=== PATIENT | female | born 1930 | race Asian ===

== ENCOUNTER 2019-09-22 19:38 | Inpatient (IN) | payer MEDICARE, MEDICAID ==
[~2019-09-22] VITALS: Ht 162.6 cm; Wt 48.5 kg
[2019-09-22 19:40] VITALS: BP 90/58
--- NOTE | 2019-09-22 19:42 | NUR ---
ED Nurse Note: pt brought in by ambulance from [facility] for decreased BP and increased in lethargy. currently pt bp is 90/56 via monitor. daughter is by bedside.
--- NOTE | 2019-09-22 20:03 | NUR ---
ED Nurse Note: blood and urine sample sent down to lab
[2019-09-22] MEDS ORDERED: BISACODYL5 MG ORAL (20:08)
[2019-09-22] MEDS ORDERED: ASPIRIN EC500 M1 ORAL (20:08)
[2019-09-22] MEDS ORDERED: NAMENDA10 MG ORAL (20:08)
[2019-09-22] MEDS ORDERED: PROSTATE 2.4 C1 EAC1 PO (20:08)
[2019-09-22] MEDS ORDERED: ALBUTEROL2.5 MG/0.1 IH (20:08)
[2019-09-22] MEDS ORDERED: MILK OF MA400 MG/51 ORAL (20:08)
[2019-09-22] MEDS ORDERED: FAMOTIDINE20 MG ORAL (20:08)
[2019-09-22] MEDS ORDERED: COLACE100 MG ORAL (20:08)
[2019-09-22] MEDS ORDERED: ARICEPT5 MG ORAL (20:08)
--- NOTE | 2019-09-22 20:08 | NUR ---
ED Nurse Note: X ray at bedside
[2019-09-22 20:10] VITALS: BP 98/51
[2019-09-22 20:17] LABS: ANION GAP 10 mmol/L (5-15); BLOOD UREA NITROGEN 30 mg/dL (7-18); CALCIUM 9.2 MG/DL (8.5-10.1); CARBON DIOXIDE 25 MMOL/L (21-32); CHLORIDE 107 MMOL/L (98-107); CREATININE 1.2 MG/DL (0.55-1.30); POTASSIUM 3.5 MMOL/L (3.5-5.1); SODIUM 142 MMOL/L (136-145)
[2019-09-22 20:19] LABS: BASOPHILS % (AUTO) 0.3 % (0.0-2.0); EOSINOPHILS % (AUTO) 0.8 % (0.0-3.0); HEMATOCRIT 35.9 % (37.0-47.0); HEMOGLOBIN 12.3 G/DL (12.0-16.0); LYMPHOCYTES % (AUTO) 15.2 % (20.0-45.0); MEAN CORPUSCULAR VOLUME 94 FL (80-99); MONOCYTES % (AUTO) 8.4 % (1.0-10.0); NEUTROPHILS % (AUTO) 75.3 % (45.0-75.0); PLATELET COUNT 230 K/UL (150-450); RED BLOOD COUNT 3.82 M/UL (4.20-5.40); RED CELL DISTRIBUTION WIDTH 11.3 % (11.6-14.8); WHITE BLOOD COUNT 9.9 K/UL (4.8-10.8)
[2019-09-22 20:20] LABS: APPEARANCE,URINE CLEAR; BILIRUBIN, URINE NEGATIVE (NEGATIVE); COLOR,URINE PALE YELLOW; GLUCOSE, URINE (UA) NEGATIVE (NEGATIVE); KETONES,URINE NEGATIVE (NEGATIVE); LEUKOCYTE ESTERASE ,URINE 1+ (NEGATIVE); NITRITE,URINE NEGATIVE (NEGATIVE); PH,URINE 7 (4.5-8.0); PROTEIN,URINE 2+ (NEGATIVE); UROBILINOGEN,URINE NORMAL MG/DL (0.0-1.0)
[2019-09-22 20:30] LABS: ALANINE AMINOTRANSFERASE 18 U/L (12-78); ALBUMIN 3.4 G/DL (3.4-5.0); ALBUMIN/GLOBULIN RATIO 0.9 (1.0-2.7); ALKALINE PHOSPHATASE 56 U/L (46-116); ASPARTATE AMINO TRANSFERASE 14 U/L (15-37); BILIRUBIN,TOTAL 0.3 MG/DL (0.2-1.0); CKMB < 0.5 NG/ML (0.0-3.6); CREATINE KINASE 18 U/L (26-308)
--- NOTE | 2019-09-22 21:27 | NUR ---
ED Nurse Note: Repeat lactic sent to lab
--- NOTE | 2019-09-22 21:28 | Emergency Room Report ---
History of Present Illness General Chief Complaint: Generalized Weakness Source: Family Member Present Illness HPI 89-year-old female presents ED for evaluation. [facility]. Reported altered level of consciousness witnessed by daughter. Lasted for several minutes. Also hypotensive in the field. Daughter states that patient was admitted to [facility] last week for similar presentation and subsequently transferred to [facility] rehab facility. Has signs of distress upon arrival. No other aggravating relieving factors. No other associated symptoms Allergies: Coded Allergies: No Known Allergies (Unverified , 09/22/19) Patient History Past Medical History: none Past Surgical History: none Pertinent Family History: none Social History: Denies: smoking, alcohol use, drug use Last Menstrual Period: na Now: No Immunizations: UTD Reviewed Nursing Documentation: PMH: Agreed; PSxH: Agreed Review of Systems All Other Systems: limited Physical Exam Vital Signs Date Time Temp Pulse Resp B/P (MAP) Pulse Ox O2 Delivery O2 Flow Rate FiO2 09/22/19 19:34 98.4 84 18 96/70 (79) 96 Room Air 09/22/19 19:40 97 Sp02 EP Interpretation: reviewed, normal General Appearance: no apparent distress, lethargic, thin Head: normocephalic, atraumatic Eyes: bilateral eye normal inspection, bilateral eye PERRL ENT: hearing grossly normal, normal pharynx, no angioedema, normal voice Neck: full range of motion, supple/symm/no masses Respiratory: chest non-tender, lungs clear, normal breath sounds, speaking full sentences Cardiovascular #1: regular rate, rhythm, no edema Cardiovascular #2: 2+ carotid (R), 2+ carotid (L), 2+ radial (R), 2+ radial (L) , 2+ dorsalis pedis (R), 2+ dorsalis pedis (L) Gastrointestinal: normal bowel sounds, non tender, soft, non-distended, no guarding, no rebound Rectal: deferred Genitourinary: normal inspection, no CVA tenderness Musculoskeletal: back normal, non-tender Neurologic: other - lethargic Psychiatric: other - lethargic Reflexes: 3+ bicep (R), 3+ bicep (L), 3+ tricep (R), 3+ tricep (L), 3+ knee (R) , 3+ knee (L) Skin: other - see nursing skin notes Lymphatic: no adenopathy Procedures Critical Care Time Critical Care Time i. I feel this is a highly complex case requiring extensive working including EKG/Rhythm strip, Xray/CT/US, Blood/urine lab work, repeat exams while in ED, and administration of strong opiates/narcotics for pain control, admission to hospital or close patient follow up. Total time: 45 min bedside evaluation and treatment excludes procedures (EKG). Reason for critical care: hypotension, AMS Possible complications: hypotension, hypertension, AL, shock, arrhythmias, metabolic acidosis, end organ damage, respiratory failure. Interventions: labs, IVFS, EKG, CXR, cardiac monitoring Course: Patient presenting with altered mental status. Hypotension. Labs IV fluids EKG and chest x-ray. No leukocytosis. Hemoglobin/hematocrit stable, electro lites okay, lactic millimeter be elevated, UA negative. Chest x-ray shows no focal consolidation. BP slowly improving with IV fluids. Consultations: nursing staff, EMS, family Performed by: Dr Vital Tolerated well condition = serious j. because of unstable vital signs this patient had a condition that could potentially threaten life or limb. I feel this is a critical patient who required my full attention while patient was considered critical. Total Critical Care Time excluding procedures was greater than 45 minutes Medical Decision Making Diagnostic Impression: Primary Impression: Episode of generalized weakness Additional Impression: Acute encephalopathy ER Course Hospital Course 89-year-old female presenting to ED with generalized weakness, hypotension Differential diagnoses include: Pneumonia, UTI, sepsis, dehydration, AL/ unstable angina Clinical course Patient placed on stretcher. On neurourologist with hypotension. After initial history and physical, I ordered labs, IV fluids, EKG, chest x-ray, blood cultures, UA. Labs - electrolytes ok, UA negative, no leukocytosis, hb/hct stable, lactic 2.3 EKG - NSR no acute ischemic chagnes interpreted by me CXR - no acute process Afebrile. No source of infection. BP slowly improving with IV fluids. Case discussed with Dr Moreno and they agreed to admit patient to their service for further care and support I feel this is a highly complex case requiring extensive working including EKG/ Rhythm strip, Xray/CT/US, Blood/urine lab work, repeat exams while in ED, and administration of strong opiates/narcotics for pain control, admission to hospital or close patient follow up. Diagnosis - episode of generalized weakness, acute encephalopathy Patient admitted to telemetry in serious condition Labs Test 09/22/19 19:50 09/22/19 20:00 09/22/19 21:17 White Blood Count 9.9 K/UL (4.8-10.8) Red Blood Count 3.82 M/UL (4.20-5.40) Hemoglobin 12.3 G/DL (12.0-16.0) Hematocrit 35.9 % (37.0-47.0) Mean Corpuscular Volume 94 FL (80-99) Mean Corpuscular Hemoglobin 32.2 PG (27.0-31.0) Mean Corpuscular Hemoglobin Concent 34.3 G/DL (32.0-36.0) Red Cell Distribution Width 11.3 % (11.6-14.8) Platelet Count 230 K/UL (150-450) Mean Platelet Volume 5.2 FL (6.5-10.1) Neutrophils (%) (Auto) 75.3 % (45.0-75.0) Lymphocytes (%) (Auto) 15.2 % (20.0-45.0) Monocytes (%) (Auto) 8.4 % (1.0-10.0) Eosinophils (%) (Auto) 0.8 % (0.0-3.0) Basophils (%) (Auto) 0.3 % (0.0-2.0) Sodium Level 142 MMOL/L (136-145) Potassium Level 3.5 MMOL/L (3.5-5.1) Chloride Level 107 MMOL/L (98-107) Carbon Dioxide Level 25 MMOL/L (21-32) Anion Gap 10 mmol/L (5-15) Blood Urea Nitrogen 30 mg/dL (7-18) Creatinine 1.2 MG/DL (0.55-1.30) Estimat Glomerular Filtration Rate mL/min (>60) Glucose Level 142 MG/DL (74-106) Lactic Acid Level 2.30 mmol/L (0.4-2.0) Calcium Level 9.2 MG/DL (8.5-10.1) Total Bilirubin 0.3 MG/DL (0.2-1.0) Aspartate Amino Transf (AST/SGOT) 14 U/L (15-37) Alanine Aminotransferase (ALT/SGPT) 18 U/L (12-78) Alkaline Phosphatase 56 U/L (46-116) Total Creatine Kinase 18 U/L (26-308) Creatine Kinase MB < 0.5 NG/ML (0.0-3.6) Creatine Kinase MB Relative Index 2.7 Troponin I 0.000 ng/mL (0.000-0.056) Pro-B-Type Natriuretic Peptide 476 pg/mL (0-125) Total Protein 7.1 G/DL (6.4-8.2) Albumin 3.4 G/DL (3.4-5.0) Globulin 3.7 g/dL Albumin/Globulin Ratio 0.9 (1.0-2.7) Urine Color Pale yellow Urine Appearance Clear Urine pH 7 (4.5-8.0) Urine Specific Pinon 1.010 (1.005-1.035) Urine Protein 2+ (NEGATIVE) Urine Glucose (UA) Negative (NEGATIVE) Urine Ketones Negative (NEGATIVE) Urine Blood 1+ (NEGATIVE) Urine Nitrite Negative (NEGATIVE) Urine Bilirubin Negative (NEGATIVE) Urine Urobilinogen Normal MG/DL (0.0-1.0) Urine Leukocyte Esterase 1+ (NEGATIVE) Urine RBC 0-2 /HPF (0 - 2) Urine WBC 0-2 /HPF (0 - 2) Urine Squamous Epithelial Cells Occasional /LPF Urine Bacteria Few /HPF (NONE) EKG Diagnostic Results Rate: normal Rhythm: NSR ST Segments: no acute changes ASA given to the pt in ED: No Rhythm Strip Diag. Results EP Interpretation: yes Rhythm: NSR, no PVC's, no ectopy Chest X-Ray Diagnostic Results Chest X-Ray Diagnostic Results : Chest X-Ray Ordered: Yes # of Views/Limited/Complete: 1 View Indication: Other - AMS EP Interpretation: Yes Interpretation: no consolidation, no effusion, no pneumothorax, no acute cardiopulmonary disease Impression: No acute disease Electronically Signed by: Electronically signed by Cedric Vital MD Last Vital Signs Date Time Temp Pulse Resp B/P (MAP) Pulse Ox O2 Delivery O2 Flow Rate FiO2 09/22/19 20:10 98/51 09/22/19 19:40 98.4 80 18 97 Room Air 09/22/19 19:40 97 Status: improved Disposition: ADMITTED INPATIENT Condition: Serious Referrals: NON PHYSICIAN (PCP) Cedric Vital MD Sep 22, 2019 21:28
[2019-09-22 22:10] VITALS: BP 107/54
--- NOTE | 2019-09-22 22:10 | NUR ---
ED Nurse Note: pt in bed resting, daughter by bedside. VSS
[2019-09-22] MEDS ORDERED: Piperacillin/Tazobactam 3.375 GM in NS 110 ML IVPB SCH (23:00)
--- NOTE | 2019-09-22 23:45 | NUR ---
ED Nurse Note: PT taken to telemetry floor room 202 accompanied by RN and electronic prepress technician via gurjhony with monitor box in stable condition. IV site to right hand 22g is intact. Report given to RIVERA Blunt. Belonging list signed off.
--- NOTE | 2019-09-22 23:50 | NUR ---
NURSE NOTES: Received report from RIVERA Willingham. Patient arrived via gurney accompanied by the RN and property maintenance technician. Patient is awake and responsive to verbal and tactile stimuli. Patient is mainly Syriac speaking, understands very minimal Divehi. Patient is breathing regularly and unlabored with no s/s of SOB noted. Placed patient on monitoring manager, patient is running sinus rhythm. Patient's skin is intact, noted patient to have bilateral old scarring on the hip area, possible from a previous surgery, but no listed history exists. Patient also has a old healed sacral wound with no openings noted. Patient's IV is intact, patent and asymptomatic, running fluids at prescribed rate. Patient's family was at bedside, daughter said she will return possibly tomorrow. Bed is in lowest position, breaks engaged, call light within reach, bed-alarm on, and side-rails up x3. Patient is oriented to the room to her own ability, patient is able to call with the call light in case of assistance. All needs taken care of, will continue to monitor.
[2019-09-23] VITALS: BP 113/68
--- NOTE | 2019-09-23 00:30 | NUR ---
Informed [facility] in regards to the 2 IV antibiotics that the patient needed to get (Vanco/Zosyn) and [facility] pharmacist said it was okay to Y-site the current IV fluid with the antibiotics.
[2019-09-23] MEDS: NS w/KCl 20mEq 1000ml 1,000 ML IV SCH ×4 (01:05→19:38)
[2019-09-23] MEDS ORDERED: Bisacodyl EC 5mg tab ORAL PRN (01:30)
[2019-09-23] MEDS ORDERED: Docusate 100mg cap ORAL PRN (01:30)
[2019-09-23 04:00] VITALS: BP 110/69
[2019-09-23 05:20] LABS: BASOPHILS % (AUTO) 0.2 % (0.0-2.0); EOSINOPHILS % (AUTO) 0.4 % (0.0-3.0); HEMATOCRIT 31.4 % (37.0-47.0); HEMOGLOBIN 10.8 G/DL (12.0-16.0); LYMPHOCYTES % (AUTO) 17.4 % (20.0-45.0); MEAN CORPUSCULAR VOLUME 93 FL (80-99); MONOCYTES % (AUTO) 6.5 % (1.0-10.0); NEUTROPHILS % (AUTO) 75.5 % (45.0-75.0); PLATELET COUNT 197 K/UL (150-450); RED BLOOD COUNT 3.36 M/UL (4.20-5.40); RED CELL DISTRIBUTION WIDTH 11.2 % (11.6-14.8); WHITE BLOOD COUNT 8.4 K/UL (4.8-10.8)
[2019-09-23] MEDS: Vancomycin 1 GM in NS 275 ML IVPB SCH (05:44)
[2019-09-23 05:45] LABS: ANION GAP 8 mmol/L (5-15); BLOOD UREA NITROGEN 18 mg/dL (7-18); CARBON DIOXIDE 23 MMOL/L (21-32); CHLORIDE 113 MMOL/L (98-107); CREATININE 0.8 MG/DL (0.55-1.30); POTASSIUM 3.8 MMOL/L (3.5-5.1); SODIUM 144 MMOL/L (136-145)
[2019-09-23 05:58] LABS: ALANINE AMINOTRANSFERASE 15 U/L (12-78); ALBUMIN 2.8 G/DL (3.4-5.0); ALBUMIN/GLOBULIN RATIO 0.9 (1.0-2.7); ALKALINE PHOSPHATASE 42 U/L (46-116); ASPARTATE AMINO TRANSFERASE 16 U/L (15-37); BILIRUBIN,TOTAL 0.3 MG/DL (0.2-1.0)
--- NOTE | 2019-09-23 07:00 | History and Physical Report ---
DATE OF ADMISSION: 09/22/2019 CHIEF COMPLAINT: Altered mental status, hypotension. HISTORY OF PRESENT ILLNESS: The patient is an elderly female. She has a history of dementia, encephalopathy. She was transferred from a halfway facility with an episode of altered mentation and hypotension. There are no reports of any fevers or chills. No cough. No headaches. No visual changes. On evaluation in the emergency room, her initial laboratories were relatively unremarkable. She was noted to have elevated lactic acid level. Per report in the field, she was noted to be hypotensive. Her EKG was unremarkable as was her chest x-ray. She is now admitted for further evaluation and care. PAST MEDICAL HISTORY: As above. PAST SURGICAL HISTORY: None. CURRENT MEDICATIONS: Reconciled and reviewed. ALLERGIES: None. FAMILY HISTORY: None. SOCIAL HISTORY: There is no known history of tobacco, ethanol, or drugs. REVIEW OF SYSTEMS: Unobtainable as the patient is confused. PHYSICAL EXAMINATION: VITAL SIGNS: Temperature 98 degrees, pulse of 84, respirations 16, blood pressure 110/69. GENERAL: The patient is a well-developed, chronically ill-appearing female, in no apparent distress, currently resting. NECK: Supple. No bruits. HEART: Regular rate and rhythm. LUNGS: Clear. ABDOMEN: Soft, nontender, nondistended. EXTREMITIES: Without clubbing, cyanosis, or edema. LABORATORY DATA: White count 9, hemoglobin 12, hematocrit 35, platelets of 230. Sodium 144, potassium 3.8, chloride 113, bicarb 23, BUN 18, creatinine 0.8. Lactic acid was 2.3. UA was clear. ASSESSMENT: This is an elderly female with complaints of altered mental status and hypotension. PROBLEM LIST: 1. Altered mental status, rule out TIA, rule out stroke. 2. Hypotension, suspect secondary to volume depletion. 3. Dementia. 4. Encephalopathy. 5. Lactic acidosis. PLAN: 1. IV hydration. 2. Monitor blood pressure closely. 3. Consider head CT. 4. Cardiology consultation regarding the patient's hypotension. 5. We will check a carotid duplex and a venous duplex of the legs. Pravin Osorio M.D. DR: JOSÉ MIGUEL JOB#: [id number] CC:
--- NOTE | 2019-09-23 07:30 | NUR ---
NURSE NOTES: Received report from RIVERA Blunt. The patient is resting on the bed without acute distress or shortness of breath. The patient's bed in the lowest position, call light in reach, and fall and aspiration precaution reinforced. IV site intact and patent and running IV fluid as ordered. Per patient's family member, she is more alert and oriented than she was at [facility]. She has equal facial symmetry and upper extremities strength. Will continue plan of care.
--- NOTE | 2019-09-23 07:34 | NUR ---
HAND-OFF: Report given to RIVERA Reeder. Patient in stable condition, plan of care endorsed.
[2019-09-23 08:00] VITALS: BP 131/68
--- NOTE | 2019-09-23 08:00 | NUR ---
NURSE NOTES: Clarification made with Dr. Osorio regarding code status, DVT prophylaxis, and CT of head as the patient came in for AMS. Per Dr. Osorio, full code for code status. Per Dr. Osorio, Heparin 5000unit SQ BID for DVT prophylaxis and per Dr. Osorio okay to start Heparin SQ injection without doing CT of head. Per Dr. Osorio, CT of head will not be ordered for now. The patient is stable without acute distress or shortness of breath. Will continue plan of care.
[2019-09-23] MEDS: Aspirin EC 81mg tab ORAL SCH (08:51)
[2019-09-23] MEDS: Milk of Magnesia 30ml Ud ORAL SCH (08:51)
[2019-09-23] MEDS: Donepezil 5mg Tab ORAL SCH (08:51)
[2019-09-23] MEDS: Megace 400mg/10ml Susp ORAL SCH ×2 (08:51→18:16)
[2019-09-23] MEDS: Heparin 5000 units/ml inj SUBQ SCH ×2 (08:52→21:06)
[2019-09-23] MEDS: Memantine 10mg tab ORAL SCH (08:52)
--- NOTE | 2019-09-23 09:30 | NUR ---
NURSE NOTES: Per building maintenance technician, the patient is negative for DVT. Notified to Dr. Osorio. Will continue plan of care.
--- NOTE | 2019-09-23 11:37 | NUR ---
CASE MANAGEMENT:REVIEW 89 YR OLD FEMALE BIBA FROM [facility]; INCREASED LETHARGY AND LOW BP SI: ACUTE ENCEPHALOPATHY GENERALIZED WEAKNESS 98.4 84 18 96/70 96% ON RA BUN+30 GLUCOSE+142 IS: 1L NS BOLUS CXR BLOOD CX TO TELEMETRY
[2019-09-23 12:00] VITALS: BP 142/83
--- NOTE | 2019-09-23 12:35 | Diagnostic Imaging Report ---
Indication: Dyspnea Comparison: None A single view chest radiograph was obtained. Findings: No definite infiltrate or pulmonary vascular congestion identified. The heart is enlarged. The aorta is mildly enlarged consistent with atherosclerotic vascular disease. The bones are osteopenic. Impression: No acute disease
--- NOTE | 2019-09-23 13:00 | NUR ---
NURSE NOTES: The patient is stable without acute distress or shortness of breath. Will continue plan of care.
[2019-09-23] MEDS: Piperacillin/Tazobactam 3.375 GM in NS 110 ML IVPB SCH ×2 (13:16→21:07)
--- NOTE | 2019-09-23 15:15 | Consultation ---
DATE OF CONSULTATION: 09/23/2019 CARDIOLOGY CONSULTATION CONSULTING PHYSICIAN: Jayden Moreno M.D. REQUESTING PHYSICIAN: Pravin Osorio M.D. REASON FOR CONSULTATION: Hypotension and lactic acidosis. HISTORY OF PRESENT ILLNESS: This is an 89-year-old [place] female, residing in a nursing home facility with baseline dementia. She was reported to be altered from baseline and poorly responsive according to her daughter. She apparently had no response for several minutes although had eye contact. Paramedics found the patient to be hypotensive in the field. The patient apparently had a similar presentation about a week ago and was hospitalized at [facility], no obvious findings were reported. The patient has been convalescing at a nursing home facility since that time. In the emergency room, blood pressure was 96/70, heart rate 84, and respiratory rate 18. The patient was pancultured and given a fluid challenge, at which point Cardiology consultation was performed. PAST MEDICAL HISTORY: Cerebrovascular disease with dementia, osteoporosis, osteoarthritis. ALLERGIES: None. MEDICATIONS: Prior to admission, reviewed and reconciled. SOCIAL HISTORY: Negative for smoking, alcohol, or substance abuse. REVIEW OF SYSTEMS: No reported fevers or chills. No loss of vision. Poor hearing, is baseline. No change in bowel habits including diarrhea, vomiting, or abdominal pain. No history of diabetes or thyroid impairment. No history of seizures. No prior history of myocardial infarction, endocarditis, or irregular heartbeats. No history of positive PPD, COPD, or recent upper respiratory infection. She did receive a flu and influenza vaccination this season according to available records. PHYSICAL EXAMINATION: GENERAL: Thin, frail, withdrawn, but responsive. VITAL SIGNS: Blood pressure now 103/56, heart rate 75, respiratory rate 18, and oxygen saturation at room air 97%. HEENT: Temporal wasting. Dry mucous membranes. NECK: Supple. No accessory muscle use. LUNGS: Clear. CHEST: Chest wall without deformity or breast masses. CARDIAC: Regular rhythm and rate. Normal S1, S2 with a fourth heart sound. No murmur. ABDOMEN: Soft and nontender. No guarding or rebound. EXTREMITIES: Without edema. Capillary refill is decreased. LABORATORY DATA: White count 9.9, hemoglobin 12.3, lactic acid 2.3. Potassium 3.5, BUN 30, creatinine 1.2. Pro-natriuretic peptide 476. Albumin 3.4, glucose 142. Troponin negative. IMPRESSION: 1. Hypovolemic shock. 2. Prerenal azotemia. 3. Chronic diastolic congestive heart failure. 4. Presyncope. 5. Possible early sepsis. 6. Lactic acidosis. 7. Cerebrovascular disease with dementia. PLAN: 1. Cardiac monitoring. 2. Metabolic profile. 3. Volume resuscitation. 4. DVT prophylaxis. 5. Aspiration precautions. 6. Empiric broad-spectrum antimicrobials for now. 7. Serial lactic acid levels. 8. We will follow. Jayden Moreno M.D. DR: RYANNE JOB#: [id number] CC:
[2019-09-23 16:00] VITALS: BP 154/83
--- NOTE | 2019-09-23 17:00 | NUR ---
NURSE NOTES: The patient is stable without acute distress or shortness of breath. Will continue plan of care.
--- NOTE | 2019-09-23 19:13 | Cardiology Report ---
APPROVED REPORT EKG Measurement Heart [id number] Sinus rhythm Nonspecific T wave abnormality Abnormal ECG
--- NOTE | 2019-09-23 19:30 | NUR ---
HAND-OFF: Report given to RIVERA Izquierdo. The patient is resting on the bed without acute distress or shortness of breath. The patient's bed in the lowest position, call light in reach, and fall and aspiration precaution reinforced. IV site intact and patent and running IV fluid per order. Endorsed plan of care.
--- NOTE | 2019-09-23 19:47 | NUR ---
NURSE NOTES: Received patient from RIVERA Reeder. Patient resting in bed comfortably, alert and talkative. No signs of distress, shortness of breath, or pain. Daughter at bedside. Patient able to make needs known, Estonian speaking. IV site checked, intact and patent, no signs of bleeding, infiltration, or redness. KCl 20 MEQ with NS running at 100 ML/HR. Bed in lowest position, brakes on, side rails up x3, and call light within reach. Will continue with plan of care.
[2019-09-23 20:00] VITALS: BP 153/85
--- NOTE | 2019-09-24 | Progress Note ---
DATE: 09/23/2019 CARDIOLOGY PROGRESS NOTE SUBJECTIVE: The patient is more alert and interactive. Tolerating diet. No recurring hypotension. SUBJECTIVE: VITAL SIGNS: Blood pressure 154/83, pulse 71, respirations 18. HEENT: Mucous membranes moist. LUNGS: Clear. CARDIAC: Regular rhythm and rate. Normal S1, S2 with a 1/6 systolic murmur at base. ABDOMEN: Soft. EXTREMITIES: No edema. LABORATORY AND DIAGNOSTIC DATA: Chest x-ray with no acute process. Urinalysis with 0 to 2 white cells. Sodium 144, potassium 3.8, bicarb 23, BUN 18, creatinine 0.6. Lactic acid 1.9. Troponin negative. Albumin 2.8. TSH 0.4. White count 8.4, hemoglobin 10.8. IMPRESSION: 1. Hypotension, possibly due to hypovolemia and dehydration, now resolved. 2. Hypertensive heart disease now with high normal blood pressure range. 3. Lactic acidosis, resolved. 4. No signs of acute sepsis. 5. Moderate protein-calorie malnutrition. PLAN: 1. Continue hydration. 2. Adjust rate and transition to hypotonic fluids. 3. Empiric antimicrobials pending culture results. 4. Avoid addition of antihypertensives at this time. 5. Prefer blood pressure control in this setting. 6. Monitor orthostatics. 7. Nutritional support. 8. Mobilization. Jayden Moreon M.D. DR: KAVYA JOB#: [id number] CC:
[2019-09-24] MEDS: 1/2NS w/KCl 20mEq 1000ml 1,000 ML IV SCH ×2 (00:25→13:15)
[2019-09-24] MEDS: Vancomycin 1 GM in NS 275 ML IVPB SCH (03:36)
[2019-09-24 04:00] VITALS: BP 157/92
[2019-09-24] MEDS: Piperacillin/Tazobactam 3.375 GM in NS 110 ML IVPB SCH ×3 (06:28→21:10)
--- NOTE | 2019-09-24 07:10 | NUR ---
HAND-OFF: Report given to RIVERA Sellers. Patient resting comfortably in bed, plan of care endorsed.
--- NOTE | 2019-09-24 07:31 | NUR ---
NURSE NOTES: Received report from RIVERA Izquierdo. Patient in bed resting, no active s/s cardiac, respiratory distress noticed at this time. Patient AOx2-3, SR with HR 70, on room air, denies pain at this time. IV on right hand 22G, asymptomatic, patent, intact, IV fluid running as prescribed rate. Bed in lowest position, side rails xup2, call light within reach, bed alarm on. Will continue to monitor.
[2019-09-24 08:00] VITALS: BP 137/69
[2019-09-24] MEDS: Megace 400mg/10ml Susp ORAL SCH ×2 (08:07→17:33)
[2019-09-24] MEDS: Aspirin EC 81mg tab ORAL SCH (08:07)
[2019-09-24] MEDS: Donepezil 5mg Tab ORAL SCH (08:08)
[2019-09-24] MEDS: Memantine 10mg tab ORAL SCH (08:08)
[2019-09-24] MEDS: Milk of Magnesia 30ml Ud ORAL SCH (08:08)
[2019-09-24] MEDS: Heparin 5000 units/ml inj SUBQ SCH ×2 (08:09→21:11)
[2019-09-24 08:10] LABS: ANION GAP 8 mmol/L (5-15); BLOOD UREA NITROGEN 9 mg/dL (7-18); CARBON DIOXIDE 28 MMOL/L (21-32); CHLORIDE 106 MMOL/L (98-107); CREATININE 0.7 MG/DL (0.55-1.30); POTASSIUM 3.9 MMOL/L (3.5-5.1); SODIUM 141 MMOL/L (136-145)
--- NOTE | 2019-09-24 09:49 | General Progress Note ---
Assessment/Plan Problem List: (1) Sepsis ICD Codes: A41.9 - Sepsis, unspecified organism SNOMED: 05386714 (2) HTN (hypertension) ICD Codes: I10 - Essential (primary) hypertension SNOMED: 13023542 (3) Acute encephalopathy ICD Codes: G93.40 - Encephalopathy, unspecified SNOMED: 65328942, 604943638 (4) Episode of generalized weakness ICD Codes: R53.1 - Weakness SNOMED: 45617212 Status: stable Assessment/Plan: dc ivf BP rx monitor mental status encourage pos follow up cultures iv abx Subjective ROS Limited/Unobtainable: No Constitutional: Reports: malaise, weakness HEENT: Reports: no symptoms Cardiovascular: Reports: no symptoms Respiratory: Reports: no symptoms Gastrointestinal/Abdominal: Reports: no symptoms Genitourinary: Reports: no symptoms Neurologic/Psychiatric: Reports: no symptoms Endocrine: Reports: no symptoms Hematologic/Lymphatic: Reports: no symptoms Allergies: Coded Allergies: No Known Allergies (Unverified , 09/22/19) All Systems: reviewed and negative except above Subjective no events. more alert. per family better/improved. no sob. labs reviewed. remains on iv abx. Objective Last 24 Hour Vital Signs Date Time Temp Pulse Resp B/P (MAP) Pulse Ox O2 Delivery O2 Flow Rate FiO2 09/24/19 04:00 63 09/24/19 04:00 98.0 70 18 157/92 (113) 95 09/24/19 00:00 67 09/23/19 21:00 Room Air 09/23/19 20:00 98.5 68 18 153/85 (107) 96 09/23/19 20:00 72 09/23/19 16:00 98.3 74 18 154/83 (106) 95 09/23/19 16:00 71 09/23/19 12:00 81 09/23/19 12:00 98.9 80 18 142/83 (102) 97 Intake and Output 09/23/19 09/24/19 18:59 06:59 Intake Total 1220 ml 60 ml Output Total 800 ml 1000 ml Balance 420 ml -940 ml Intake Oral 1220 ml 60 ml Output Urine Total 800 ml 1000 ml # Voids 5 # Bowel Movements 1 Laboratory Tests 09/24/19 06:55: Sodium Level 141, Potassium Level 3.9, Chloride Level 106, Carbon Dioxide Level 28, Anion Gap 8, Blood Urea Nitrogen 9, Creatinine 0.7, Estimat Glomerular Filtration Rate , Glucose Level 94, Calcium Level 9.0, Vitamin B12 Level 909, Folate 32.6 Height (Feet): 5 Height (Inches): 4.00 Weight (Pounds): 110 General Appearance: WD/WN, thin Neck: supple Cardiovascular: regular rhythm Respiratory/Chest: chest wall non-tender, lungs clear, normal breath sounds Abdomen: normal bowel sounds, non tender, soft, no organomegaly Edema: no edema noted Arm (L), no edema noted Arm (R), no edema noted Leg (L), no edema noted Leg (R), no edema noted Pedal (L), no edema noted Pedal (R), no edema noted Generalized Neurologic: automation mechanic II-XII grossly normal, alert, responsive Pravin Osorio MD Sep 24, 2019 09:49
[2019-09-24] MEDS ORDERED: HydrALAZINE 25mg tab ORAL PRN (10:00)
[2019-09-24] MEDS: Losartan 25mg tab ORAL SCH (10:57)
[2019-09-24 12:00] VITALS: BP 125/73
[2019-09-24 16:00] VITALS: BP 128/68
--- NOTE | 2019-09-24 19:13 | NUR ---
HAND-OFF: Report given to RIVERA Izquierdo.
--- NOTE | 2019-09-24 19:15 | NUR ---
NURSE NOTES: Received patient from RIVERA Sellers. Patient awake, alert, and resting comfortably in bed. No signs of distress, pain, or shortness of breath noted. Patient able to make needs known. Daughter at bedside. IV site checked, intact and patent, no signs of redness, infiltration, or bleeding noted. 0.45% NS with KCl MEq running at 75 ml/hr. Fall precautions in place. Bed in lowest position, brakes on, side rails up x3, and call light within reach. Will continue with plan of care.
[2019-09-24 20:00] VITALS: BP 118/70
[2019-09-25] VITALS: BP 106/59
--- NOTE | 2019-09-25 03:00 | Progress Note ---
DATE: 09/24/2019 CARDIOLOGY PROGRESS NOTE SUBJECTIVE: The patient was seen, examined, and evaluated with daughter at bedside. The patient is tolerating diet. No nausea, vomiting, abdominal pain, or diarrhea. No cough, shortness of breath, or chest pain. No loss of consciousness. Monitor, sinus rhythm. No arrhythmias. SUBJECTIVE: VITAL SIGNS: Blood pressure 118/70, pulse 72, and respirations 18. No fever. HEENT: Oropharynx clear. LUNGS: Clear. CARDIAC: Regular. ABDOMEN: Soft. EXTREMITIES: No edema. No skin breakdown. LABORATORY DATA: Reviewed. Blood cultures are negative. Urinalysis with no active sediment. IMPRESSION AND PLAN: 1. Lactic acidosis and hypotension, resolved, likely due to hypovolemia. The patient has been on empiric antibiotics since admission, but there is no evidence of acute infection. The patient is at baseline mentation presently with resolved metabolic encephalopathy. 2. discontinue IV fluids. 3. Recheck chest radiograph following hydration. 4. Consider discontinuing antimicrobials tomorrow if chest x-ray is clear and completing recovery at detention facility. 5. No indication for any additional antihypertensive therapy at this time. Jayden Moreno M.D. DR: URIAH JOB#: [id number] CC:
[2019-09-25] MEDS: Vancomycin 1 GM in NS 275 ML IVPB SCH (03:59)
[2019-09-25 04:00] VITALS: BP 112/65
[2019-09-25] MEDS ORDERED: Piperacillin/Tazobactam 3.375 GM in NS 110 ML IVPB SCH (06:00)
--- NOTE | 2019-09-25 07:05 | NUR ---
HAND-OFF: Report given to RIVERA Reeder. Patient stable condition and eating breakfast in bed, plan of care endorsed.
--- NOTE | 2019-09-25 07:20 | NUR ---
NURSE NOTES: Received report from RIVERA Izquierdo. The patient is resting on the bed without acute distress or shortness of breath. The patient's bed in the lowest position, call light in reach, and fall and aspiration precaution reinforced. IV site intact and patent. Will continue plan of care.
[2019-09-25 08:00] VITALS: BP 124/67
--- NOTE | 2019-09-25 08:10 | NUR ---
RADIOLOGY: PCXR COMPLETED 0800 HRS. NF
--- NOTE | 2019-09-25 08:25 | General Progress Note ---
Assessment/Plan Problem List: (1) Sepsis ICD Codes: A41.9 - Sepsis, unspecified organism SNOMED: 25466119 (2) HTN (hypertension) ICD Codes: I10 - Essential (primary) hypertension SNOMED: 17699130 (3) Acute encephalopathy ICD Codes: G93.40 - Encephalopathy, unspecified SNOMED: 70802324, 037555290 (4) Episode of generalized weakness ICD Codes: R53.1 - Weakness SNOMED: 05612622 Status: stable Assessment/Plan: dc ivf BP rx monitor mental status encourage pos follow up cultures iv abx- ?dc Subjective ROS Limited/Unobtainable: No Constitutional: Reports: malaise, weakness HEENT: Reports: no symptoms Cardiovascular: Reports: no symptoms Respiratory: Reports: no symptoms Gastrointestinal/Abdominal: Reports: no symptoms Genitourinary: Reports: no symptoms Neurologic/Psychiatric: Reports: no symptoms Endocrine: Reports: no symptoms Hematologic/Lymphatic: Reports: no symptoms Allergies: Coded Allergies: No Known Allergies (Unverified , 09/22/19) All Systems: reviewed and negative except above Subjective no events. more alert. per family better/improved. no sob. labs reviewed. remains on iv abx. Objective Last 24 Hour Vital Signs Date Time Temp Pulse Resp B/P (MAP) Pulse Ox O2 Delivery O2 Flow Rate FiO2 09/25/19 04:00 97.9 67 16 112/65 (81) 95 09/25/19 04:00 68 09/25/19 00:00 98.0 71 16 106/59 (75) 95 09/25/19 00:00 69 09/24/19 21:00 Room Air 09/24/19 20:00 98.1 87 18 118/70 (86) 95 09/24/19 20:00 72 09/24/19 16:00 97.6 76 18 128/68 (88) 96 09/24/19 16:00 82 09/24/19 12:00 69 09/24/19 12:00 98.2 79 20 125/73 (90) 95 09/24/19 10:57 137/69 09/24/19 09:00 Room Air Intake and Output 09/24/19 09/25/19 19:00 07:00 Intake Total 360 ml Output Total 1300 ml Balance -940 ml Intake Oral 360 ml Output Urine Total 1300 ml Laboratory Tests 09/25/19 03:20: Vancomycin Level Trough 4.4L Height (Feet): 5 Height (Inches): 4.00 Weight (Pounds): 106 Pravin Osorio MD Sep 25, 2019 08:25
--- NOTE | 2019-09-25 09:00 | NUR ---
NURSE NOTES: Notified Dr. 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 No new order yet. Will continue plan of care.
[2019-09-25] MEDS: Aspirin EC 81mg tab ORAL SCH (09:06)
[2019-09-25] MEDS: Donepezil 5mg Tab ORAL SCH (09:06)
[2019-09-25] MEDS: Losartan 25mg tab ORAL SCH (09:06)
[2019-09-25] MEDS: Megace 400mg/10ml Susp ORAL SCH (09:06)
[2019-09-25] MEDS: Milk of Magnesia 30ml Ud ORAL SCH (09:06)
[2019-09-25] MEDS: Memantine 10mg tab ORAL SCH (09:06)
[2019-09-25] MEDS: Heparin 5000 units/ml inj SUBQ SCH (09:07)
--- NOTE | 2019-09-25 09:24 | NUR ---
DISCHARGE PLANNING CLINICALS FAXED TO [facility] T: [phone] AWAIT ACCEPTANCE AND DISCHARGE ORDER
--- NOTE | 2019-09-25 10:17 | Diagnostic Imaging Report ---
APPROVED REPORT CPT Code: 17144 Present Symptoms Comments: Screening BILATERAL: Imaging reveals a patent deep venous system bilaterally. There is no evidence of thrombus within the femoral, popliteal or tibial segments. The greater saphenous veins are also within normal limits. Doppler indicates normal spontaneous flow within these segments.
--- NOTE | 2019-09-25 10:17 | Diagnostic Imaging Report ---
APPROVED REPORT CPT Code: 92846 Vascular Symptoms Dizziness and Vertigo Doppler Spectral Velocity Analysis RightLeft arteries. The Doppler spectral flow analysis indicates the degree of stenosis is minimal (10%) in the common carotid artery, minimal (20%) in the internal carotid artery, and in the external carotid artery. arteries. The Doppler spectral flow analysis indicates the degree of stenosis is minimal (20%) in the common carotid artery, minimal (20%) in the internal carotid artery, and (30%) in the external carotid artery. SUBCLAVIANS/VERTEBRALS - Imaging reveals both subclavians and vertebral arteries to be patent, without evidence of stenosis or steal.
--- NOTE | 2019-09-25 11:10 | NUR ---
DISCHARGE PLANNING PATIENT HAS BEEN ACCEPTED BACK TO [facility] ROOM 41 A SKILLED AWAIT DISCHARGE ORDER
[2019-09-25 12:00] VITALS: BP 111/66
--- NOTE | 2019-09-25 12:00 | NUR ---
NURSE NOTES: The patient is stable without acute distress or shortness of breath. Will continue plan of care.
--- NOTE | 2019-09-25 12:28 | Diagnostic Imaging Report ---
Indication: Dyspnea Comparison: 09/22/2019 A single view chest radiograph was obtained. Findings: Bones are osteopenic. Heart size is normal. Lungs are clear. Aorta is mildly calcified. IMPRESSION: No acute findings
--- NOTE | 2019-09-25 13:18 | NUR ---
RD ASSESSMENT & RECOMMENDATIONS SEE CARE ACTIVITY FOR COMPLETE ASSESSMENT DAILY ESTIMATED NEEDS: Needs based on cardiac, 49kg 25-30 kcals/kg 4398-6362 total kcals 1-1.3 g protein/kg 49-64 g total protein 25-30 mL/kg 6030-9124 total fluid mLs NUTRITION DIAGNOSIS: Chewing difficulty R/T admitted w/ lethargy and AMS, h/o dementia, advancing age as evidenced by pt on mech soft finely chopped texture diet. CURRENT DIET:REGULAR, mech soft finely chopped PO DIET RECOMMENDATIONS: Maintain liberalized REGULAR diet/ texture as tolerated or per REHABILITATION COUNSELLOR ADDITIONAL RECOMMENDATIONS: * Calibrated bedscale wt for accurate CBW * Monitor PO intake closely - suspect h/o poor PO, pt on Megace BID * MVI x 1 as supplement * Add Ensure Enlive once daily (350kcal, 20g prot per bottle) .
[2019-09-25] MEDS ORDERED: ACETAMINOPHEN325 M1 ORAL (13:29)
--- NOTE | 2019-09-25 13:30 | NUR ---
NURSE NOTES: Clarification made with Dr. Moreno regarding discharge order and discharge medication. Per Dr. Moreno, the patient does not need antibiotics upon discharge. Not[facility] to Karla Jules, the daughter. Interfacility transport report form completed. Will continue plan of care until discharge.
[2019-09-25] MEDS ORDERED: ASPIRIN EC81 MG ORAL (13:31)
--- NOTE | 2019-09-25 13:31 | NUR ---
DISCHARGE PLANNING [facility] ROOM 41 A SKILLED T: [phone] FOR NURSE TO NURSE REPORT [facility] HAS BEEN ARRANGED FOR 1530 BAKERY ASSISTANT
[2019-09-25] MEDS ORDERED: BISACODYL5 MG ORAL (13:32)
[2019-09-25] MEDS ORDERED: DOCUSATE SODIU100 MG ORAL (13:33)
[2019-09-25] MEDS ORDERED: CATAPRES0.1 MG ORAL (13:33)
[2019-09-25] MEDS ORDERED: DONEPEZIL HCL5 M2 ORAL (13:34)
[2019-09-25] MEDS ORDERED: FAMOTIDINE20 MG ORAL (13:34)
[2019-09-25] MEDS ORDERED: NAMENDA10 MG ORAL (13:35)
[2019-09-25] MEDS ORDERED: MILK OF MA400 MG/51 ORAL (13:35)
[2019-09-25 16:00] VITALS: BP 116/61
[2019-09-25] MEDS ORDERED: Vancomycin 1 GM in NS 275 ML IVPB SCH (16:00)
--- NOTE | 2019-09-25 16:20 | NUR ---
NURSE NOTES: The patient got safely discharged back to [facility] with [employer] transporter's support. The patient has been stable in terms of physical condition and vital signs. The patient daughter, Karla Jules, at the bedside and received full explanation about discharge [facility] from Dr. Moreno and the primary nurse. Nurse to nurse report given to RIVERA Longo who is a receiving nurse @ [facility]. Report also given to Junior who is [employer] transporter. The primary nurse removed IV, nameband, and tele box. The patient's belongings checked with the patient and daughter and signed by the daughter. Discharge instruction given to the patient, daughter, and Qing, the receiving nurse, and the discharge paper signed by the daughter. Interfacility form completed. Swabs completed. POLST handed to [facility] so that [facility], the receiving facility can keep it. The patient's skin is intact. In short, the patient got safely transferred [facility] with family and lifeline transporter's support in stable condition with Dr. Moreno's discharge order.
--- NOTE | 2019-09-26 02:31 | Progress Note ---
DATE: 09/25/2019 CARDIOLOGY PROGRESS NOTE SUBJECTIVE: The patient is seen with daughter at bedside. The patient is at baseline mentation. No dizziness. Blood pressure did decrease following dose of losartan this morning. OBJECTIVE: VITAL SIGNS: Blood pressure 112/65, pulse 67, and respirations 16. LUNGS: Clear. CARDIAC: Regular. No new murmur. ABDOMEN: Soft. EXTREMITIES: No edema. IMPRESSION AND PLAN: Presenting symptoms were likely due to hypovolemia and orthostasis in conjunction with medications. Today's events with low blood pressure following very low dose of losartan confirms this. The patient is not euvolemic. There is no sign of acute infection. A repeat chest x-ray today still shows no active disease. Recommend discharge to senior care facility. No antihypertensive therapy at this time. Maintain adequate oral intake and hydration. Resume physical and occupational therapy in anticipation of subsequent discharge home. Jayden Moreno M.D. DR: URIAH JOB#: [id number] CC:
--- NOTE | 2019-09-26 13:26 | Discharge Summary ---
Discharge Summary Discharge Summary _ DATE OF ADMISSION: 09/22/2019 DATE OF DISCHARGE: 09/25/2019 DISCHARGED BY: Dr. Osorio REASON FOR ADMISSION: 89 years old female with past medical history of dementia, was brought by police academy instructor from the half-way facility due to altered level of consciousness, witnessed by her daughter . Patient was hypotensive in the field. According to the daughter, patient was admitted to [facility] last week for similar presentation and subsequently was transferred to acute rehabilitation facility. In ED patient was hypotensive with blood pressure 96/70 . Patient was afebrile , pulse oximetry was stable on room air. Laboratory work-up revealed no leukocytosis, stable hemoglobin , hematocrit , platelet count. Lactic acid 2.3. Stable electrolytes. BUN 30, creatinine 1.2 . Stable electrolytes. Glucose 142. Stable LFT and CK. Troponin negative , pro BNP 476 . Albumin 3.4 Urinalysis revealed +2 protein, no evidence of UTI. CXR revealed no acute cardiopulmonary pathology. Patient subsequently admitted to telemetry floor for further management. CONSULTANTS: speech and drama teacher [facility] COURSE: Patient admitted to telemetry floor. Patient started on volume resuscitation with IV hydration. Hemodynamic status was closely monitored. Patient initially started on empiric antibiotics. Cardiology consult was requested. Venous duplex bilateral lower extremity revealed no evidence of acute DVT. Carotid Duplex was essentially unremarkable. Aspiration precautions maintained. Per speech and drama teacher , patient had hypotension, precipitated by dehydration and hypovolemia. Patient also exhibited prerenal azotemia due to dehydration. Repeated lactic acid was negative. Repeated chest x-ray revealed no evidence of infection. Urinalysis was negative. Blood culture were negative. Antibiotic stopped. Telemetry revealed sinus rhythm , no evidence of arrhythmia. Blood pressure improved with IV hydration . IV fluids discontinued. Patient started on low-dose of Cozaar for blood pressure control. Antiplatelet therapy with aspirin continued. Protein supplements implemented in plan of care as per shotweld operator recommendation. Namenda and Aricept continued Bowel regimen instituted. GI prophylaxis provided. Patient clinically stabilized and was ready for transfer back to half-way facility for continuation of care. FINAL DIAGNOSES: Metabolic encephalopathy Hypotension with mild hypovolemic shock - resolved Lactic acidosis likely due to hypovolemia -resolved Dementia Chronic diastolic congestive heart failure DISCHARGE MEDICATIONS: See Medication Reconciliation list. DISCHARGE INSTRUCTIONS: Patient was discharged to the half-way facility. Follow up with medical doctor at the facility. I have been assigned to dictate discharge summary for this account. I was not involved in the patient's management. Natalia Morris NP Sep 26, 2019 13:26
== END 2019-09-25 16:20 | DRG 640 ==
LOC: EDBD 19:38 → EMR 19:55 → 2E 20:52 → EDBEDREQ 22:35 → 2E 09-25 10:51
DX: E86.1 Hypovolemia (principal); G93.41 Metabolic encephalopathy; I50.32 Chronic diastolic (congestive) heart failure; E44.0 Moderate protein-calorie malnutrition; Z68.1 Body mass index [BMI] 19.9 or less, adult; E86.0 Dehydration; E87.2 Acidosis; F01.50 Vascular dementia, unspecified severity, without behavioral disturbance, psychotic disturbance, mood disturbance, and anxiety; I95.9 Hypotension, unspecified; M81.0 Age-related osteoporosis without current pathological fracture; M19.90 Unspecified osteoarthritis, unspecified site
CPT/HCPCS: 36415; 71045; 80048; 80053; 80202; 81003; 82550; 82553; 82607; 82746; 83605; 83880; 84443; 84484; 85025; 87040; 87081; 93005; 93880; 93970; 96360; 99291; J7030